=== PATIENT | female | born 1950 | race Caucasian/White ===

== ENCOUNTER → 2024-02-02 15:37 | Outpatient (REF) | payer MEDICARE, SELFPAY | LOC: WDC 15:37 | PROVIDERS: ATTENDING PHYSICIAN Obstetrics & Gynecology Gynecology; FAMILY PHYSICIAN Family Medicine | DX: Z12.31 Encounter for screening mammogram for malignant neoplasm of breast (principal) | CPT/HCPCS: 77063; 77067 ==

== ENCOUNTER 2024-09-08 06:06 | Emergency (ER) | payer MEDICARE, SELFPAY ==
[2024-09-08 06:09] VITALS: BP 157/86
[2024-09-08 07:24] LABS: COVID-19 Antigen Negative (Negative)
--- NOTE | 2024-09-08 07:31 | ED.GENMED ---
History of Present Illness
General
Chief Complaint: Eye Problems
Source: patient
Time Seen by Provider: 09/08/24 06:33
History of Present Illness
History of Present Illness:
73-year-old female who presents with bilateral eye redness, irritation, and drainage. Reports for last 3-4 days has had cough, congestion. no fevers. pt states she first thought she just had something in her eye. Also request refill of her inhalers
but states her breathing has been doing okay
Past History
Past History
ED Past Medical History: Other (crohns disease, endometrial CA)
Phy Exam
Physical Exam
Physical Exam:
CONSTITUTIONAL Patient alert and oriented to person, place and time. Well-appearing. Vital signs reviewed.
HEAD atraumatic, normocephalic.
EYES Extraocular muscles intact, sclera and conjunctiva injected bilaterally with exudates noted on the lids. Nasal congestion noted
NECK normal range of motion, Trachea midline, no jugular venous distention.
RESPIRATORY CHEST No respiratory distress noted, Chest expansion equal, Bilateral breath sounds clear.
CARDIOVASCULAR regular rate and rhythm, Heart sounds normal.
BACK normal inspection, no obvious deformities
UPPER EXTREMITY range of motion normal, Motor strength normal, no cyanosis, no edema.
LOWER EXTREMITY range of motion normal, Motor strength normal, no cyanosis, no edema.
NEURO Speech normal, No focal motor deficits, Domonique coma scale 15, Memory normal, Cranial Nerves intact to screening exam.
SKIN skin warm, dry, and normal in color.
Course
Orders/Labs/Results
Orders:
Orders
09/08/24 06:19
COVID-19 Antigen Urgent
Source: Nasal Swab
Influenza A+B Rapid Molecular Urgent
SOURAV Source: Nasal Swab
Specimen Description:
09/08/24 07:28
Tobramycin 0.3% [Tobrex 0.3% Eye Drops] See Dose Instructions OPHTH NOW STA
Vital Signs
Initial and Last Documented VS:
Initial Vital Signs
Temp Pulse Resp BP Pulse Ox
97.7 F 79 22 157/86 97
09/08/24 06:09 09/08/24 06:09 09/08/24 06:09 09/08/24 06:09 09/08/24 06:09
Last Documented Vital Signs
Temp Pulse Resp BP Pulse Ox
97.7 F 79 22 157/86 97
09/08/24 06:09 09/08/24 06:09 09/08/24 06:09 09/08/24 06:09 09/08/24 06:09
MDM/Problems Addressed
MDM/Problems Addressed:
Bilateral conjunctivitis, upper respiratory infection, bronchitis
*Pulse Oximetry
Patient hypoxic: no
*Critical Care Note
Total Time (30-74mins, 75-104mins- exclusive of procedures): Not Applicable
Data Reviewed
Source: patient
Further Testing Considered But Not Given:
Consider chest x-ray but lungs clear and pulse ox normal
Patient Management
Escalation/DeEscalation of care consider admission/obs:
Bilateral conjunctivitis. Recommended warm compress. Recommended baby oil or Vaseline on lids at night to prevent crusting. Outpatient follow-up recommended
ED Attending Note
-
Portions of this chart may have been created with voice recognition software.� Occasional wrong word or��sound alike� substitutions may have occurred due to the inherent limitations of voice recognition software.
Discharge Plan
Departure
Patient Disposition: Home (Routine Discharge)
Date of Disposition: 09/08/24
Time of Disposition: 07:40
Patient with high blood pressure during this ER visit?: No
Discharge Problem:
Bilateral conjunctivitis, Acute upper respiratory infection
Instructions: Conjunctivitis (Pinkeye) (DC), BLOOD PRESSURE
Prescriptions:
New
albuterol sulfate 90 mcg/actuation HFA aerosol inhaler
2 puff inhalation Q6H PRN (Reason: shortness of breath or wheezing) Qty: 8.5 0RF
fluticasone propionate 110 mcg/actuation HFA aerosol inhaler
2 puff inhalation BID Qty: 12 0RF
Referrals:
Mitesh Landa MD [Family Provider] -
Activity Restrictions/Additional Instructions:
Please apply 1 drop in each eye every 4 hours while awake. Please use warm compresses as discussed. Please see your doctor in follow-up in the next 1 week if symptoms persist. Return immediately for worsening pain, vision changes, shortness of
breath or any other concern
Interventions
Interventions:
*Risk Screen - Suicide Last Done: 09/08/24 06:09
Discharge Date and Time
Print Language: YI
[2024-09-08] MEDS: TOBREX 0.3% EYE DROPS 2 DROP OPHTH (07:58)
== END 2024-09-08 07:58 | disposition home or self-care (01) ==
LOC: EMR 06:06
PROVIDERS: Emergency Medicine; EMERGENCY PHYSICIAN Emergency Medicine; FAMILY PHYSICIAN Family Medicine
DX: H10.9 Unspecified conjunctivitis (principal); J06.9 Acute upper respiratory infection, unspecified; Z11.52 Encounter for screening for COVID-19; Z85.42 Personal history of malignant neoplasm of other parts of uterus
CPT/HCPCS: 99283; 87502; 87811

== ENCOUNTER → 2025-02-08 14:00 | Outpatient (REF) | payer MEDICARE, SELFPAY | LOC: WDC 14:00 | PROVIDERS: ATTENDING PHYSICIAN Obstetrics & Gynecology Gynecology; FAMILY PHYSICIAN Family Medicine | DX: Z12.31 Encounter for screening mammogram for malignant neoplasm of breast (principal) | CPT/HCPCS: 77063; 77067 ==

== ENCOUNTER → 2025-03-05 13:06 | Outpatient (REF) | payer MEDICARE, SELFPAY | LOC: RAD 13:06 | PROVIDERS: ATTENDING PHYSICIAN Obstetrics & Gynecology Gynecology; FAMILY PHYSICIAN Family Medicine | DX: Z78.0 Asymptomatic menopausal state (principal) | CPT/HCPCS: 77080 ==